=== PATIENT | male | born 2000 | race Two or more races ===

== ENCOUNTER 2024-02-21 11:29 | Emergency (ER) | payer OTHER ==
[~2024-02-21] VITALS: Ht 175.3 cm; Wt 122.7 kg
[2024-02-21 11:33] VITALS: TEMP 97.9
[2024-02-21 12:48] LABS: ANION GAP 9 mmol/L (8-16); CALCIUM, TOTAL 8.9 mg/dL (8.8-10.5); CARBON DIOXIDE 27 mmol/L (22-29); CHLORIDE 102 mmol/L (98-107); CREATININE 0.79 mg/dL (0.60-1.30); GLOMERULAR FILTR. RATE CALC > 60 mL/min (>60); GLUCOSE,RANDOM 95 mg/dL (70-110); POTASSIUM 3.8 mmol/L (3.5-5.1); SODIUM SERUM 138 mmol/L (136-145); UREA NITROGEN, BLOOD 12 mg/dL (7-18)
[2024-02-21 12:51] LABS: BASOPHILS % (AUTO) 0.5 % (0.0-2.0); EOSINOPHILS % (AUTO) 0.5 % (1.0-6.0); HEMATOCRIT 47.5 % (41-53); HEMOGLOBIN 15.8 g/dL (13.5-17.5); LYMPHOCYTES # (AUTO) 2.6 K/uL (1.0-4.8); LYMPHOCYTES % (AUTO) 25.8 % (22.0-44.0); MEAN CORPUSCULAR HEMOGLOBIN 30.4 pg (26.0-34.0); MEAN CORPUSCULAR HGB CONC 33.4 G/dL (31.0-37.0); MEAN CORPUSCULAR VOLUME 91 fL (80-100); MONOCYTES # (AUTO) 0.7 K/uL (0.1-1.0); MONOCYTES % (AUTO) 6.9 % (2.0-9.0); NEUTROPHILS # (AUTO) 6.6 K/uL (1.8-7.7); NEUTROPHILS % (AUTO) 66.3 % (40.0-70.0); PLATELET COUNT (AUTO) 380 K/uL (150-450); RED CELL DISTRIBUTION WIDTH 13.3 % (11.5-14.5)
[2024-02-21] MEDS: SODIUM CHLORIDE 0.9% 1,000 ML IV ONE (12:56)
[2024-02-21 13:09] LABS: TROPONIN I-HIGH SENSITIVITY 15 ng/L (<76)
[2024-02-21 13:11] LABS: ALCOHOL, BLOOD (SERUM) < 3 mg/dL (0-10)
[2024-02-21 13:24] LABS: CREATINE KINASE, TOTAL ONLY 191 U/L (39-308)
[2024-02-21 13:30] VITALS: BP 125/76; PULSE 70; RESP 18; O2SAT 99
[2024-02-21] MEDS ORDERED: LORA-1000 PO (13:44)
== END 2024-02-21 14:54 | disposition home or self-care (01) ==
LOC: EMS 11:34
DX: F41.9 Anxiety disorder, unspecified (principal); F14.90 Cocaine use, unspecified, uncomplicated; R42 Dizziness and giddiness
CPT/HCPCS: 99284; 96360; 80048; 82550; 83735; 84484; 85025; 36415; 93005; G0480; J7030